=== PATIENT | male | born 1975 | race Two or more races ===

== ENCOUNTER 2017-10-03 09:44 | Emergency (ER) | payer SELFPAY ==
[~2017-10-03] VITALS: Ht 182.9 cm; Wt 127.0 kg
[2017-10-03 09:50] VITALS: BP 163/96
[2017-10-03] MEDS ORDERED: IBUPROFEN 800 MG TABLET. PO ONE (10:30)
--- NOTE | 2017-10-03 10:39 | PHYS DOC ---
Past Medical History Past Medical History: Diabetes-Type II Past Surgical History: Other Additional Past Surgical Histo: DENTAL Alcohol Use: None Drug Use: None Adult General Chief Complaint Chief Complaint: DENTAL PROBLEM HPI HPI Patient is a 41 year old male presents to the emergency department with a history of having dental procedures completed 3 weeks ago. Patient states he was eating when he felt something crack and then developed increase pain and discomfort to the left lower jaw. He states the pain radiates into the left ear. Patient states he has taken oxycodone for the pain with no relief. Patient denies fever, chills, nausea or vomiting. Patient does have swelling noted to the left lower jaw line. Review of Systems Review of Systems Constitutional: Denies fever or chills [] Eyes: Denies change in visual acuity, redness, or eye pain [] HENT: Denies nasal congestion or sore throat. Dental pain to the left lower jaw line Respiratory: Denies cough or shortness of breath [] Cardiovascular: No additional information not addressed in HPI [] GI: Denies abdominal pain, nausea, vomiting, bloody stools or diarrhea [] : Denies dysuria or hematuria [] Musculoskeletal: Denies back pain or joint pain [] Integument: Denies rash or skin lesions [] Neurologic: Denies headache, focal weakness or sensory changes [] Endocrine: Denies polyuria or polydipsia [] All other systems were reviewed and found to be within normal limits, except as documented in this note. Current Medications Current Medications Current Medications Medications (Trade) Dose Ordered Sig/[facility] Start Time Stop Time Status Last Admin Dose Admin Ibuprofen (Motrin) 800 mg 1X ONCE 10/03/17 10:30 10/03/17 10:31 DC 10/03/17 10:35 800 MG Allergies Allergies Allergies Coded Allergies Type Severity Reaction Last Updated Verified No Known Drug Allergies 10/03/17 No Physical Exam Physical Exam Constitutional: Well developed, well nourished, no acute distress, non-toxic appearance. [] HENT: Normocephalic, atraumatic, bilateral external ears normal, oropharynx moist, no oral exudates, nose normal. Bilateral TM normal, patient was noted to have tenderness to the left lower back tooth, tooth appear intact with the gums being red. Patient with tenderness noted to the lower left jaw line. Eyes: PERRLA, EOMI, conjunctiva normal, no discharge. [] Neck: Normal range of motion, no tenderness, supple, no stridor. [] Cardiovascular:Heart rate regular rhythm, no murmur [] Lungs & Thorax: Bilateral breath sounds clear to auscultation [] Skin: Warm, dry, no erythema, no rash. [] Extremities: No tenderness, no cyanosis, no clubbing, ROM intact, no edema. [] Neurologic: Alert and oriented X 3, normal motor function, normal sensory function, no focal deficits noted. [] Psychologic: Affect normal, judgement normal, mood normal. [] Current Patient Data Vital Signs Vital Signs Date Time Temp Pulse Resp B/P (MAP) Pulse Ox O2 Delivery O2 Flow Rate FiO2 10/03/17 09:50 97.6 96 20 163/96 (118) 97 Room Air 97.6 EKG EKG [] Radiology/Procedures Radiology/Procedures [][facility] [address] [place] [address] IMAGING REPORT Signed PATIENT: SILVIA KHANNA ACCOUNT: [id number] : 1975 LOCATION: ER AGE: 41 SEX: M EXAM STATUS: REG ER ORD. PHYSICIAN: MADDISON BARROS APRN REASON: pain to left mandible PROCEDURE: MANDIBLE COMPLETE 4+V EXAM: Mandible 4 views. HISTORY: Left mandibular pain. COMPARISON: None. FINDINGS: The left most posterior inferior molar is impacted and noted. There is associated surrounding lucency which may be an odontogenic cyst or an abscess. No fractures are identified. The temporomandibular joints are normally aligned bilaterally. IMPRESSION: 1. Lucency surrounding an unerupted left posterior inferior molar may be an odontogenic cyst or abscess. Dental follow-up is recommended. DICTATED and SIGNED BY: GOSIA DODGE MD DATE: 10/03/17 1054 CC: MADDISON BARROS APRN; NON,STAFF; UNKNOWN PCP NAME ~ Course & Med Decision Making Course & Med Decision Making Pertinent Labs and Imaging studies reviewed. (See chart for details) Patient was provided with ibuprofen here in the emergency department for pain control. Patient's CT scan identified lucency surrounding an unerupted left posterior inferior molar lower will be an odontogenic cyst or an abscess to her follow-up is recommended. Patient will be placed on amoxicillin he'll be provided with hydrocodone. Recommended that he follow-up with a primary dentist within the next 3-5 days. Recommended plenty of fluids. Recommended that he did not use any further Tylenol with [place]. He was instructed that [place] will cause drowsiness do not take if you need to be alert and oriented. He also may take 800 mg of ibuprofen every 8 hours to help with inflammation. Patient was provided with signs and symptoms to return back to the emergency department. He' ll be discharged home in stable condition. I've spoken with the patient and/or caregivers. I've explained the patient's condition, diagnosis and treatment plan based on information available to me at this time. I've answered the patient's and/or caregivers questions and addressed any concerns. The patient and/or caregivers have a good understanding the patient's diagnosis, condition and treatment plan as can be expected at this point. Vital signs have been stabilized. The patient's condition is stable for discharge from the emergency department. The patient will pursue further outpatient evaluation with her primary care provider or other designated consulting physician as outlined in the discharge instructions. Patient and/or caregivers are agreeable to this plan of care and follow-up instructions have been explained in detail. The patient and/or caregivers have received these instructions in written format and expressed understanding of these discharge instructions. The patient and her caregivers are aware that if any significant change in condition or worsening of symptoms should prompt him to immediately return to this of the closest emergency department. If an emergent department is not readily available I would encourage him to call 911. [] Dragon Disclaimer Dragon Disclaimer This electronic medical record was generated, in whole or in part, using a voice recognition dictation system. Departure Departure Impression: Primary Impression: Dental abscess Disposition: 01 HOME, SELF-CARE Condition: STABLE Referrals: UNKNOWN PCP NAME (PCP) Patient Instructions: Dental Abscess Additional Instructions: Activity as tolerated. Medications as prescribed. Hydrocodone for severe pain and discomfort this medication will cause drowsiness do not take any be alert and oriented. Ibuprofen 800 mg every 8 hours with food stopped taking to develop an upset stomach. Follow-up with your dentist within the next week. Return back to the emergency department for signs and symptoms that become worse. Scripts Hydrocodone/Apap 5-325 (NORCO 5-325 TABLET) 1 Each Tablet 1 TAB PO PRN Q6HRS Y for PAIN, #10 TAB 0 Refills Prov: MADDISON BARROS APRN 10/03/17 Amoxicillin (AMOXICILLIN) 500 Mg Capsule 1 CAP PO QID, #40 CAP Prov: MADDISON BARROS APRN 10/03/17 MADDISON BARROS APRN Oct 03, 2017 10:39
--- NOTE | 2017-10-03 11:02 | RAD ---
EXAM: Mandible 4 views. HISTORY: Left mandibular pain. COMPARISON: None. FINDINGS: The left most posterior inferior molar is impacted and noted. There is associated surrounding lucency which may be an odontogenic cyst or an abscess. No fractures are identified. The temporomandibular joints are normally aligned bilaterally. IMPRESSION: 1. Lucency surrounding an unerupted left posterior inferior molar may be an odontogenic cyst or abscess. Dental follow-up is recommended.
[2017-10-03] MEDS ORDERED: AMOX500C PO (11:18)
[2017-10-03] MEDS ORDERED: HYDR-971 PO (11:18)
== END 2017-10-03 11:25 | disposition home or self-care (01) ==
LOC: ER 09:44
DX: K04.7 Periapical abscess without sinus (principal); E11.9 Type 2 diabetes mellitus without complications
CPT/HCPCS: 70110; 99284